=== PATIENT | female | born 1995 | race African-American/Black ===

== ENCOUNTER 2019-07-18 10:44 | Inpatient (IN) ==
[2019-07-18] MEDS ORDERED: LACTATED RINGERS 1,000 ML IV PRN (10:55)
[2019-07-18] MEDS ORDERED: ONDANSETRON 4 MG/2 ML VIAL IV PRN (10:55)
[2019-07-18] MEDS ORDERED: LACTATED RINGERS 1,000 ML IV SCH (11:00)
[2019-07-18] MEDS ORDERED: OXYTOCIN/LR 20 UNIT/1,000 ML BAG IV SCH (11:00)
[2019-07-18] MEDS ORDERED: ONDANSETRON 4 MG/2 ML VIAL IV ONE (11:02)
[2019-07-18] MEDS ORDERED: PROMETHAZINE 25 MG/1 ML VIAL IM ONE (11:02)
[2019-07-18] MEDS ORDERED: NALOXONE 0.4 MG/ML VIAL IV PRN (11:02)
[2019-07-18] MEDS ORDERED: ePHEDrine 50 MG/ML AMP IV PRN (11:02)
[2019-07-18] MEDS ORDERED: FAMOTIDINE 20 MG/2 ML VIAL IV ONE (11:02)
[2019-07-18] MEDS ORDERED: CITRIC ACID/SODIUM CITRATE 30 ML UDCUP PO ONE (11:02)
[2019-07-18] MEDS ORDERED: diphenhydrAMINE 50 MG/1 ML VIAL IV PRN ×2 (11:02)
[2019-07-18] MEDS ORDERED: hydrOXYzine HCL 25 MG/1 ML VIAL IM PRN (11:02)
[2019-07-18] MEDS ORDERED: fentaNYL 2 MCG/ROPIV 0.2% EPID 100 ML EPIDURAL SCH (11:30)
[2019-07-18] MEDS ORDERED: LACTATED RINGERS 1,000 ML IV ONE (11:33)
[2019-07-18 11:34] LABS: Basophils % 0.2 % (0.0-0.8); Eosinophils # 0.1 10*3/uL (0.0-0.87); Eosinophils % 1.4 % (0.00-10.9); Hemoglobin 11.9 GM/DL (12.0-16.0); Immature Granulocytes % 1.2 %; Immature Granulocytes Absolute 0.11 #; Lymphocytes % 21.3 % (21.3-54.2); Mean Corpuscular HGB Conc 33.1 GM/DL (32-36); Mean Corpuscular Volume 81.8 FL (87-102); Mean Platelet Volume 9.8 FL (9.6-12.0); Monocytes % 6.5 % (1.7-12.7); Neutrophils % 69.4 % (38.7-73.9); Platelet Count 211 T/CUMM (130-400); Red Cell Distribution Width 13.8 % (9.3-17.3); White Blood Count 9.5 T/CUMM (4-12)
[2019-07-18 11:55] LABS: Albumin 2.8 G/DL (3.4-5.0); Bilirubin,Total 0.6 MG/DL (0.2-1.0); Calcium 8.9 MG/DL (8.5-10.1); Osmolality,Calculated 274.4 MOS/KG (273-304); Total Protein 6.8 G/DL (6.4-8.3)
[2019-07-18] MEDS ORDERED: miSOPROStol 200 MCG TABLET ONE (15:47)
[2019-07-18 16:27] LABS: Cord Arterial Blood HCO3 20.1 MMOL/L
[2019-07-18 16:30] LABS: Cord Venous Blood HCO3 23.1 MMOL/L; Cord Venous Blood PCO2 44.2 MMHG; Cord Venous Blood PO2 28.3
[2019-07-18] MEDS ORDERED: DIPH/TET/ACEL PERT BOOSTER VACCINE 0.5 ML VIAL IM ONE (21:12)
[2019-07-18] MEDS ORDERED: WITCH HAZEL PADS 100/JAR TOP PRN (21:12)
[2019-07-18] MEDS ORDERED: oxyCODONE/ACETAMINOPHEN 5-325 MG TABLET PO PRN (21:12)
[2019-07-18] MEDS ORDERED: ACETAMINOPHEN 325 MG TABLET PO PRN (21:12)
[2019-07-18] MEDS ORDERED: HYDROCORTISONE 2.5% RECTAL CREAM 30 GM TUBE TOP PRN (21:12)
[2019-07-18] MEDS ORDERED: BISACODYL 10 MG SUPP RECTAL PRN (21:12)
[2019-07-18] MEDS ORDERED: BENZOCAINE 20%/MENTHOL 0.5% SPRAY 56 GM CAN TOP PRN (21:12)
[2019-07-18] MEDS ORDERED: MEASLES/MUMPS/RUBELLA VACCINE 0.5 ML VIAL SUBCUT ONE (21:12)
[2019-07-18] MEDS ORDERED: LANOLIN 50% CREAM 0.3 OZ TUBE TOP PRN (21:12)
[2019-07-18] MEDS ORDERED: RHO(D) IMMUNE GLOBULIN 300 MCG SYRINGE IM ONE (21:12)
[2019-07-18] MEDS: oxyCODONE/ACETAMINOPHEN 5-325 MG TABLET PO PRN (21:44)
[2019-07-19] MEDS: IBUPROFEN 800 MG TABLET PO PRN ×3 (01:04→19:56)
[2019-07-19] MEDS: DOCUSATE SODIUM 100 MG CAPSULE PO SCH ×4 (01:12→22:14)
[2019-07-19] MEDS: oxyCODONE/ACETAMINOPHEN 5-325 MG TABLET PO PRN ×3 (04:41→20:54)
[2019-07-19 06:37] LABS: Basophils % 0.2 % (0.0-0.8); Eosinophils # 0.2 10*3/uL (0.0-0.87); Eosinophils % 1.7 % (0.00-10.9); Hematocrit 32.4 VOL% (35.7-47.0); Hemoglobin 10.6 GM/DL (12.0-16.0); Immature Granulocytes % 0.7 %; Immature Granulocytes Absolute 0.07 #; Lymphocytes # 2.1 10*3/uL (1.4-4.0); Lymphocytes % 22.1 % (21.3-54.2); Mean Corpuscular HGB Conc 32.7 GM/DL (32-36); Mean Corpuscular Volume 83.5 FL (87-102); Mean Platelet Volume 9.5 FL (9.6-12.0); Monocytes % 5.8 % (1.7-12.7); Neutrophils % 69.5 % (38.7-73.9); Platelet Count 165 T/CUMM (130-400); Red Blood Count 3.88 MC/CUMM (3.8-5.5); Red Cell Distribution Width 14.1 % (9.3-17.3); White Blood Count 9.5 T/CUMM (4-12)
[2019-07-20] MEDS: IBUPROFEN 800 MG TABLET PO PRN (05:13)
[2019-07-20] MEDS: oxyCODONE/ACETAMINOPHEN 5-325 MG TABLET PO PRN (08:36)
[2019-07-20] MEDS: DOCUSATE SODIUM 100 MG CAPSULE PO SCH (08:36)
[2019-07-20 10:32] VITALS: BP 124/87
== END 2019-07-20 11:45 | disposition home or self-care (01) | DRG 560 ==
LOC: N.LDOUT 10:44 → N.LD 10:45 → N.OB 20:55
PROVIDERS: ADMIT Obstetrics & Gynecology; ATTEND Obstetrics & Gynecology